=== PATIENT | female | born 1960 | race Caucasian/White ===

== ENCOUNTER 2017-05-07 09:12 | Emergency (ER) | payer OTHER ==
--- NOTE | 2017-05-07 10:39 | ER PHYSICIAN DOCUMENTATION ---
Physician Documentation [facility] Name:Karis Perez Age:57 yrs Sex:Female :1960 Arrival Date:05/07/2017 Time:09:12 Bed6 Private MD: Martin Oden Disposition: 05/07/17 10:25 Discharged to Home/Self Care. Impression: Tendonitis - Plantar Fasciitis. - Condition is Good. - Discharge Instructions: PLANTAR FASCIITIS. - Medical Reconciliation form form. - Follow up: Private Physician; When: 10 - 14 days; Reason: Recheck today's complaints. - Problem is new. - Symptoms are unchanged. HPI: 05/07 10:26 This 57 yrs old Female presents to ER via Private Vehicle with complaints of sc Foot Pain. 10:26 The patient presents with pain. The complaints affect the right foot. Context: The sc problem was sustained at home, resulted from an unknown cause, the patient can fully bear weight, the patient is able to ambulate. Onset: The symptom(s)/episode began/occurred 5 week(s) ago. Associated signs and symptoms: The patient has no apparent associated signs or symptoms. Historical: - Allergies: No known drug Allergies; - Home Meds: 1. Cymbalta oral 2. trazodone Oral 3. Synthroid Oral - PMHx: HYPOTHYROIDISM; - PSHx: URETHRA; - Tetanus: > 10 years. - Ebola Screening: : Patient denies travel to an Ebola-affected area in the 21 days before illness onset. No symptoms or risks identified at this time. . - Immunization history: Flu Vaccine >1 year. - Social history: Smoking status: Patient states was never smoker of tobacco. ROS: 10:52 MS/extremity: Positive for pain, Negative for injury or acute deformity, decreased sc range of motion, ecchymosis. 10:52 Constitutional: Negative for fever, chills, and weight loss. sc Eyes: Negative for injury, pain, redness, and discharge. Cardiovascular: Negative for chest pain, palpitations, and edema. Back: Negative for injury and pain. Skin: Negative for injury, rash, and discoloration. 10:52 Neuro: Negative for headache, weakness, numbness, tingling, and seizure. Exam: Constitutional: This is a well developed, well nourished patient who is awake, alert, and in no acute distress. Head/Face: Normocephalic, atraumatic. 10:52 Eyes: Pupils equal round and reactive to light, extra-ocular motions intact. Lids and sc lashes normal. Conjunctiva and sclera are non-icteric and not injected. Cornea within normal limits. Periorbital areas with no swelling, redness, or edema. 10:52 ENT: Mouth: Oral mucosa: moist. 10:52 Musculoskeletal/extremity: Extremities: grossly normal except: tenderness, ROM: no acute changes, intact in all extremities, Circulation is intact in all extremities. Sensation intact. Vital Signs: 09:32 BP 145 / 60; Pulse 62; Resp 16; Temp 98.0; Pulse Ox 93% on R/A; Weight 49.44 kg; Height lc 5 ft. 1 in. (154.94 cm); Pain 2/10; 10:36 Pain 1/10; lc 09:32 Body Mass Index 20.60 (49.44 kg, 154.94 cm) MDM: 09:14 Patient medically screened. sc 10:54 Differential diagnosis: fracture, sprain, arthritis, gout, plantar fasciitis, stress sc fx, gout. Data reviewed: vital signs, nurses notes, and as a result, I will discharge patient. Counseling: I had a detailed discussion with the patient and/or guardian regarding: the historical points, exam findings, and any diagnostic results supporting the discharge/admit diagnosis, the need for outpatient follow up, for a referral to a specialist. Dispensed Medications: No medications were administered Signatures: Karis Christian RN RN Martin Pierre MD MD ks
--- NOTE | 2017-05-07 10:39 | ER NURSING DOCUMENTATION ---
Nurse's Notes [facility] Name:Karis Perez Age:57 yrs Sex:Female :1960 Arrival Date:05/07/2017 Time:09:12 Bed6 Private MD: Diagnosis:Tendonitis - Plantar Fasciitis Presentation: 05/07 09:14 Acuity: MARCIA 4 rh 09:24 Presenting complaint: Patient states: HX IF RIGHT FOOT PAIN FOR A MONTH, TRIED REST AND lc WALKING BOOT. HAD MASSAGE ON MONDAY, SINCE C/O FOOT PAIN NEAR THE HEEL. WORSE IN AM WHEN GETTING OUT OF BED. Transition of care: patient was not received from another setting of care. Notified ED Physician of patient's arrival and CC. 09:24 Method Of Arrival: Private Vehicle Triage Assessment: 09:28 General: Appears in no apparent distress, Behavior is anxious, cooperative. Pain: lc Complains of pain in arch of right foot Pain At worst was 3 out of 10 on a pain scale. Neuro: Level of Consciousness is awake, confused, Oriented to person, place, time, event. Musculoskeletal: Circulation, motion, and sensation intact Capillary refill < 3 seconds Range of motion intact in all extremities. Historical: - Allergies: No known drug Allergies; - Home Meds: 1. Cymbalta oral 2. trazodone Oral 3. Synthroid Oral - PMHx: HYPOTHYROIDISM; - PSHx: URETHRA; - Tetanus: > 10 years. - Ebola Screening: : Patient denies travel to an Ebola-affected area in the 21 days before illness onset. No symptoms or risks identified at this time. . - Immunization history: Flu Vaccine >1 year. - Social history: Smoking status: Patient states was never smoker of tobacco. Screenin:33 Infectious Disease Risk None. Abuse screen: Denies threats or abuse. Denies injuries lc from another. Nutritional screening: No deficits noted. Assessment: 09:33 See Triage Assessment done by same RN. Vital Signs: 09:32 BP 145 / 60; Pulse 62; Resp 16; Temp 98.0; Pulse Ox 93% on R/A; Weight 49.44 kg; Height lc 5 ft. 1 in. (154.94 cm); Pain 2/10; 10:36 Pain 1/10; lc 09:32 Body Mass Index 20.60 (49.44 kg, 154.94 cm) ED Course: 09:13 Patient arrived in ED. arc 09:14 Triage completed. rh 09:14 Martin Pierre MD is Attending Physician. id 09:17 Karis Christian, RN is Primary Nurse. 09:33 Valuables Remains with patient Patient has correct armband on for positive lc identification. Bed in low position. Call light in reach. Adult w/ patient. Ice pack to injury. Administered Medications: No medications were administered Outcome: 10:25 Discharge ordered by . id 10:36 Discharged to home ambulatory, with significant other. 10:36 Condition: good 10:36 Discharge Assessment: Patient awake, alert and oriented x 3. No cognitive and/or functional deficits noted. Patient verbalized understanding of disposition instructions. 10:36 Discharge instructions given to patient, Instructed on discharge instructions, follow up and referral plans. medication usage, Demonstrated understanding of instructions, medications. 10:38 Patient left the ED. 05/08 17:23 Discharge F/U Call: Unable to reach: no answer st Signatures: Nabila Montejo RN RN st Karis Christian, RN RN Martin Gonzalez MD MD id Anabela Pierre, Reg Reg arc Hofsess, Leena rh
== END 2017-05-07 10:39 | disposition home or self-care (01) ==
LOC: ER 09:12
DX: M72.2 Plantar fascial fibromatosis (principal); Z79.899 Other long term (current) drug therapy
CPT/HCPCS: 99281